=== PATIENT | female | born 1970 | race Caucasian/White ===

== ENCOUNTER 2017-10-20 09:30 | Emergency (ER) | payer MEDICAID ==
[2017-10-20] MEDS ORDERED: Acetaminophen/HYDROcodone 325-5 MG Tab PO ONE (09:50)
--- NOTE | 2017-10-20 09:57 | EDM.PDOC ---
ED HPI GENERAL MEDICAL PROBLEM - General Chief Complaint: Back Pain or Injury Stated Complaint: BACK PAIN Time Seen by Provider: 10/20/17 09:42 Source of Information: Reports: Patient History Limitations: Reports: No Limitations - History of Present Illness INITIAL COMMENTS - FREE TEXT/NARRATIVE: History of present illness: Patient rode several hours on a train to [place] to visit family complains of lower back pain. She has had a discectomy in the past and states when she sits for a long time her pain flares and she has radiation of her left lower back pain coming around to her front left thigh. She denies any incontinence or other pain. She states she is allergic to everything except hydrocodone and Percocet and they are the only drugs that work for her pain not want a muscle relaxant. Review of systems: As per history of present illness and below otherwise all systems reviewed and negative. Past medical history: As per history of present illness and as reviewed below otherwise noncontributory. Surgical history: As per history of present illness and as reviewed below otherwise noncontributory. Social history: No reported history of drug or alcohol abuse. Family history: As per history of present illness and as reviewed below otherwise noncontributory. Physical exam: General: Well developed, well nourished in NAD HEENT: Atraumatic, normocephalic, pupils reactive, negative for conjunctival pallor or scleral icterus, mucous membranes moist, throat clear, neck supple, nontender, trachea midline. Lungs: Clear to auscultation, breath sounds equal bilaterally, chest nontender. Heart: S1S2, regular, negative for clicks, rubs, or JVD. Abdomen: Soft, nondistended, nontender. Negative for masses or hepatosplenomegaly. Negative for costovertebral tenderness. Pain over her sacral area bilaterally there is a scabbed over area over her left lumbar area from her surgery without signs of infection. Pelvis: Stable nontender. Genitourinary: Deferred. Rectal: Deferred. Extremities: Atraumatic, negative for cords or calf pain. Neurovascular unremarkable. Neuro: Awake, alert, oriented. Cranial nerves II through XII unremarkable. Cerebellum unremarkable. Motor and sensory unremarkable throughout. Exam nonfocal. Diagnostics: [] Therapeutics: []Hydrocodone 5-25 by mouth in the ED Impression: []Chronic low back pain with acute exacerbation Plan: []Hydrocodone as directed follow-up with primary care for further pain management encourage physical therapy Definitive disposition and diagnosis as appropriate pending reevaluation and review of above. Lower Back Pain Score (Numeric/FACES): 10 - Related Data Allergies Allergy/AdvReac Type Severity Reaction Status Date / Time acetaminophen Allergy Mild Hives Verified 01/18/14 08:42 [From Darvocet-N] Penicillins Allergy Mild Hives Verified 01/18/14 08:43 propoxyphene napsylate Allergy Mild Hives Verified 01/18/14 08:42 [From Darvocet-N] NSAIDS (Non-Steroidal Allergy Hives Verified 01/18/14 08:41 Anti-Inflamma Home Meds: Home Meds Estradiol [Vivelle-Dot] 1 each TD ASDIRECTED 01/18/14 [History] Gabapentin Enacarbil [Horizant] 800 mg PO TID 01/18/14 [History] LORazepam 1 mg PO ASDIRECTED PRN 05/20/14 [History] Pantoprazole Sodium [Protonix] 40 mg PO DAILY 10/20/17 [History] Past Medical History Musculoskeletal History: Reports: Back Pain, Chronic Psychiatric History: Reports: Anxiety Oncologic (Cancer) History: Reports: Cervix - Past Surgical History Female Surgical History: Reports: Hysterectomy Musculoskeletal Surgical History: Reports: Other (See Below) Other Musculoskeletal Surgeries/Procedures:: Discectomy Social & Family History - Family History Family Medical History: Noncontributory - Tobacco Use Smoking Status *Q: Current Every Day Smoker Years of Tobacco use: 10 Packs/Tins Daily: 0.2 Second Hand Smoke Exposure: No - Caffeine Use Caffeine Use: Reports: Coffee, Tea - Alcohol Use Days Per Week of Alcohol Use: 0 - Recreational Drug Use Recreational Drug Use: No ED ROS GENERAL - Review of Systems Review Of Systems: See Below (See history of present illness) ED EXAM,LOWER BACK PAIN/INJURY - Physical Exam Exam: See Below (See history of present illness) Course - Vital Signs Last Recorded V/S: Last Vital Signs Temp 96.9 F 10/20/17 09:35 Pulse 99 10/20/17 09:35 Resp 20 10/20/17 09:35 BP 124/76 10/20/17 09:35 Pulse Ox 98 10/20/17 09:35 - Orders/Labs/Meds Meds: Medications Discontinued Medications Generic Name Dose Route Start Last Admin Trade Name Bogdan PRN Reason Stop Dose Admin Hydrocodone Bitart/Acetaminophen 1 tab 10/20/17 09:50 [place] 325-5 Mg PO 10/20/17 09:51 ONETIME ONE Departure - Departure Time of Disposition: 09:56 Disposition: Home, Self-Care 01 Condition: Good Clinical Impression: Acute exacerbation of chronic low back pain - Discharge Information Referrals: PCP,None [Primary Care Provider] - Additional Instructions: The following information is given to patients seen in the emergency department who are being discharged to home. This information is to outline your options for follow-up care. We provide all patients seen in our emergency department with a follow-up referral. The need for follow-up, as well as the timing and circumstances, are variable depending upon the specifics of your emergency department visit. If you don't have a primary care physician on staff, we will provide you with a referral. We always advise you to contact your personal physician following an emergency department visit to inform them of the circumstance of the visit and for follow-up with them and/or the need for any referrals to a consulting specialist. The emergency department will also refer you to a specialist when appropriate. This referral assures that you have the opportunity for follow-up care with a specialist. All of these measure are taken in an effort to provide you with optimal care, which includes your follow-up. Under all circumstances we always encourage you to contact your private physician who remains a resource for coordinating your care. When calling for follow-up care, please make the office aware that this follow-up is from your recent emergency room visit. If for any reason you are refused follow-up, please contact the [facility] Emergency Department at and asked to speak to the emergency department charge nurse. Hydrocodone 5-10/07, 12 tablets dispensed ,no refills follow-up with primary care request physical therapy. [facility] [address] [place] [id number]
== END 2017-10-20 10:00 | disposition home or self-care (01) ==
LOC: MW.ED 09:30
DX: G89.29 Other chronic pain (principal); M54.5 Low back pain; F41.9 Anxiety disorder, unspecified; F17.210 Nicotine dependence, cigarettes, uncomplicated; Z88.6 Allergy status to analgesic agent; Z88.0 Allergy status to penicillin; Z79.899 Other long term (current) drug therapy; Z88.8 Allergy status to other drugs, medicaments and biological substances; Z90.49 Acquired absence of other specified parts of digestive tract; Z98.890 Other specified postprocedural states
CPT/HCPCS: 99283; A9270